=== PATIENT | female | born 1975 | race Caucasian/White ===

== ENCOUNTER → 2017-01-16 | Outpatient (CLI) | payer BC ==
--- NOTE | 2017-01-18 08:35 | MM ---
Reason for exam: screening (asymptomatic). Last mammogram was performed 1 year and 1 month ago. History: Family history of breast cancer in cousin at age 36. Reductions of both breasts, April 2015. Benign left mammotome panel of the left breast, November 18, 2009. Took hormonal contraceptives for 3 years beginning at age 25. Physical Findings: A clinical breast exam by your physician is recommended on an annual basis and results should be correlated with mammographic findings. MG Screening Mammo w CAD Bilateral CC and MLO view(s) were taken. Prior study comparison: December 10, 2015, bilateral MG screening mammo w CAD. August 11, 2014, bilateral MG screening mammo w CAD. July 28, 2013, CAD bilateral diagnostic mammogram. Previous mammotome biopsy in the left breast. There is chronic nodularity in the left breast. Bilateral mammoplasty changes. Faint group of microcalcifications lateral anterior right breast appear new. Not clearly seen on the MLO view. ASSESSMENT: Incomplete: need additional imaging evaluation, BI-RAD 0 RECOMMENDATION: Special view mammogram of the right breast. If lesion persists on supplemental views, image directed ultrasound is recommended. [facility] will attempt to contact patient to return for supplemental views and ultrasound if indicated.
== END | disposition home or self-care (01) ==
LOC: RADMAMWWP 15:10
PROVIDERS: ATTEND Obstetrics & Gynecology
DX: Z12.31 Encounter for screening mammogram for malignant neoplasm of breast (principal)

== ENCOUNTER → 2017-01-23 | Outpatient (CLI) | payer BC ==
--- NOTE | 2017-01-23 08:09 | MM ---
Reason for exam: additional evaluation requested from abnormal screening. Last mammogram was performed less than 1 month ago. History: Family history of breast cancer in cousin at age 36. Reductions of both breasts, April 2015. Benign left mammotome panel of the left breast, November 18, 2009. Took hormonal contraceptives for 3 years beginning at age 25. Physical Findings: Nurse did not find any significant physical abnormalities on exam. MG Work Up Mamm w CAD RT ML, CC with magnification, and ML with magnification view(s) were taken of the right breast. Prior study comparison: January 16, 2017, bilateral MG screening mammo w CAD. December 10, 2015, bilateral MG screening mammo w CAD. Punctate calcifications within upper outer right breast are likely related to previous reduction mammoplasty. These results were verbally communicated with the patient and result sheet given to the patient on 01/23/17. ASSESSMENT: Probably benign, BI-RAD 3 RECOMMENDATION: Follow-up diagnostic mammogram of the right breast in 6 months. (with magnification views)
== END | disposition home or self-care (01) ==
LOC: RADMAMWWP 07:02
PROVIDERS: ATTEND Obstetrics & Gynecology
DX: R92.8 Other abnormal and inconclusive findings on diagnostic imaging of breast (principal)

== ENCOUNTER → 2017-02-27 | Outpatient (CLI) | payer BC ==
--- NOTE | 2017-02-27 15:31 | XR ---
EXAMINATION TYPE: XR knee complete RT DATE OF EXAM: 02/27/2017 COMPARISON: NONE HISTORY: Right knee pain TECHNIQUE: Three-view right knee FINDINGS: Joint spaces are preserved. No acute fractures are evident. No joint effusion is evident. F ollow-up exams can be performed 7-10 days from acute trauma for continued pain. IMPRESSION: 1. No acute osseous abnormality three-view right knee
== END ==
LOC: RADXRYALE 11:58
PROVIDERS: ATTEND Internal Medicine
DX: M25.561 Pain in right knee (principal)

== ENCOUNTER → 2017-10-25 | Outpatient (CLI) | payer BC ==
--- NOTE | 2017-10-25 15:05 | MM ---
Reason for exam: follow-up at short interval from prior study. Last mammogram was performed 9 months ago. History: Family history of breast cancer in cousin at age 36. Reductions of both breasts, April 2015. Benign left mammotome panel of the left breast, November 18, 2009. Took hormonal contraceptives for 3 years beginning at age 25. Physical Findings: Nurse did not find any significant physical abnormalities on exam. MG Diagnostic Mammo RT w CAD CC and MLO view(s) were taken of the right breast. Prior study comparison: January 23, 2017, right breast MG work up mamm w CAD RT. January 16, 2017, bilateral MG screening mammo w CAD. There are scattered fibroglandular densities. Finding: There are typically benign round calcifications in the right breast. There is no discrete abnormality. These results were verbally communicated with the patient and result sheet given to the patient on 10/25/17. ASSESSMENT: Benign, BI-RAD 2 RECOMMENDATION: Return to routine screening mammogram schedule for both breasts. Back on schedule for January 2018.
== END ==
LOC: RADMAMWWP 14:27
PROVIDERS: ATTEND Obstetrics & Gynecology
DX: R92.8 Other abnormal and inconclusive findings on diagnostic imaging of breast (principal)
CPT/HCPCS: 77065

== ENCOUNTER → 2018-11-19 | Outpatient (CLI) | payer BC ==
--- NOTE | 2018-11-20 13:08 | MM ---
Reason for exam: screening (asymptomatic). Last mammogram was performed 1 year and 1 month ago. History: Family history of breast cancer in cousin at age 36. Reductions of both breasts, April 2015. Benign left mammotome panel of the left breast, November 18, 2009. Took hormonal contraceptives for 3 years beginning at age 25. Physical Findings: A clinical breast exam by your physician is recommended on an annual basis and results should be correlated with mammographic findings. MG Screening Mammo w CAD Bilateral CC and MLO view(s) were taken. Prior study comparison: October 25, 2017, right breast MG diagnostic mammo RT w CAD. January 23, 2017, right breast MG work up mamm w CAD RT. The breast tissue is heterogeneously dense. This may lower the sensitivity of mammography. No suspicious abnormality. Left biopsy marker noted. No significant new finding when compared with prior studies. ASSESSMENT: Negative, BI-RAD 1 RECOMMENDATION: Routine screening mammogram of both breasts in 1 year.
== END | disposition home or self-care (01) ==
LOC: RADMAMWWP 07:59
PROVIDERS: ATTEND Obstetrics & Gynecology
DX: Z12.31 Encounter for screening mammogram for malignant neoplasm of breast (principal)
CPT/HCPCS: 77067

== ENCOUNTER → 2018-12-19 | Outpatient (CLI) | payer BC ==
--- NOTE | 2018-12-19 15:43 | US ---
EXAMINATION TYPE: US thyroid st tissue head/neck DATE OF EXAM: 12/19/2018 COMPARISON: NONE CLINICAL HISTORY: E04.1 THYROID NODULE. Difficulty swallowing x 1 month GLAND SIZE: Right Lobe: 4.9 x 1.3 x 1.5 cm Overall Parenchyma: homogenous Left Lobe: 5.2 x 1.1 x 1.2 cm Overall Parenchyma: homogeneous Isthmus Thickness: 0.3 cm NODULES RIGHT: # of nodules measured on right: 0 LEFT: # of nodules measured on left: 0 ISTHMUS: # of nodules measured in the isthmus: 0 Bilateral neck scanned, no evidence of lymphadenopathy. IMPRESSION: Mildly enlarged thyroid gland without discrete nodule.
== END | disposition home or self-care (01) ==
LOC: RADUSWWP 15:18
PROVIDERS: ATTEND Internal Medicine
DX: E04.1 Nontoxic single thyroid nodule (principal); E04.9 Nontoxic goiter, unspecified
CPT/HCPCS: 76536

== ENCOUNTER → 2019-03-27 | Outpatient (CLI) | payer BC ==
[2019-03-27 15:37] LABS: Basophils % (A) 1 %; Eosinophils % (A) 1 %; HCT 37.9 % (34.0-46.0); HGB 11.8 gm/dL (11.4-16.0); Hypochromasia Slight; Lymphocytes # (A) 1.5 k/uL (1.0-4.8); Lymphocytes % (A) 28 %; MCH 27.5 pg (25.0-35.0); MCHC 31.2 g/dL (31.0-37.0); MCV 88.1 fL (80.0-100.0); Mean Platelet Volume 6.4; Monocytes # (A) 0.3 k/uL (0-1.0); Monocytes % (A) 6 %; Neutrophils # (A) 3.4 k/uL (1.3-7.7); Neutrophils % (A) 63 %; Platelet Count 337 k/uL (150-450); RBC 4.31 m/uL (3.80-5.40); RDW 13.3 % (11.5-15.5); WBC 5.5 k/uL (3.8-10.6)
[2019-03-27 19:44] LABS: African American GFR (CKD) 121.3 (60.0-200.0); Anion Gap 9.5 mmol/L (4.00-12.00); Calcium 9.5 mg/dL (8.7-10.3); Carbon Dioxide 25.5 mmol/L (21.6-31.8); Potassium 4.5 mmol/L (3.5-5.5)
[2019-03-28 01:09] LABS: Hemoglobin A1C 5.4 % (4.0-6.0)
== END | disposition home or self-care (01) ==
LOC: LABWHC1 14:43
PROVIDERS: ATTEND Orthopaedic Surgery Adult Reconstructive Orthopaedic Surgery
DX: M25.562 Pain in left knee (principal); G89.29 Other chronic pain
CPT/HCPCS: 36415; 80048; 83036; 85025; 87070

== ENCOUNTER → 2020-02-02 | Outpatient (CLI) | payer BC ==
--- NOTE | 2020-02-03 10:07 | MM ---
Reason for exam: screening (asymptomatic). Last mammogram was performed 1 year and 2 months ago. History: Family history of breast cancer in cousin at age 36. Reductions of both breasts, April 2015. Benign left mammotome panel of the left breast, November 18, 2009. Took hormonal contraceptives for 3 years beginning at age 25. Physical Findings: A clinical breast exam by your physician is recommended on an annual basis and results should be correlated with mammographic findings. MG Screening Mammo w CAD Bilateral CC and MLO view(s) were taken. Prior study comparison: November 19, 2018, bilateral MG screening mammo w CAD. October 25, 2017, right breast MG diagnostic mammo RT w CAD. The breast tissue is heterogeneously dense. This may lower the sensitivity of mammography. There is no discrete abnormality. No significant changes when compared with prior studies. ASSESSMENT: Negative, BI-RAD 1 RECOMMENDATION: Routine screening mammogram of both breasts in 1 year.
== END | disposition home or self-care (01) ==
LOC: RADMAMWWP 07:54
PROVIDERS: ATTEND Obstetrics & Gynecology
DX: Z12.31 Encounter for screening mammogram for malignant neoplasm of breast (principal)
CPT/HCPCS: 77067

== ENCOUNTER → 2021-02-15 | Outpatient (CLI) | payer BC ==
--- NOTE | 2021-02-16 09:16 | MM ---
Reason for exam: screening (asymptomatic). Last mammogram was performed 1 year ago. History: Family history of breast cancer in cousin at age 36. Reductions of both breasts, April 2015. Benign left mammotome panel of the left breast, November 18, 2009. Took hormonal contraceptives for 3 years beginning at age 25. Physical Findings: A clinical breast exam by your physician is recommended on an annual basis and results should be correlated with mammographic findings. MG Screening Mammo w CAD Bilateral CC and MLO view(s) were taken. XCCL view(s) were taken of the left breast. Prior study comparison: February 02, 2020, bilateral MG screening mammo w CAD. November 19, 2018, bilateral MG screening mammo w CAD. There are scattered fibroglandular densities. There is no discrete abnormality. No significant changes when compared with prior studies. ASSESSMENT: Negative, BI-RAD 1 RECOMMENDATION: Routine screening mammogram of both breasts in 1 year.
== END | disposition home or self-care (01) ==
LOC: RADMAMWWP 08:07
PROVIDERS: ATTEND Obstetrics & Gynecology
DX: Z12.31 Encounter for screening mammogram for malignant neoplasm of breast (principal); Z80.3 Family history of malignant neoplasm of breast
CPT/HCPCS: 77067

== ENCOUNTER 2021-02-22 05:59 | Day surgery (SDC) | payer BC ==
[2021-02-17 10:30] VITALS: BMI 38.9
--- NOTE | 2021-02-21 17:30 | P.HPOB ---
History of Present Illness H&P Date: 02/21/21 Chief Complaint: Dysfunctional uterine bleeding, requesting ablation. This patient is a pleasant 45 yr female who presents for endometrial ablation secondary to dysfunctional uterine bleeding/menorrhagia. Evaluation has included a pelvic ultrasound (negative except small fibroid) and endometrial biopsy (negative). Review of Systems Genitourinary: Reports abnormal vaginal bleeding, Reports menorrhagia Menstruation: Reports as per HPI, Reports menses variable, Reports period heavy Past Medical History Past Medical History: Deep Vein Thrombosis (DVT), GERD/Reflux History of Any Multi-Drug Resistant Organisms: None Reported Past Surgical History: Bariatric Surgery, Breast Surgery, Cholecystectomy, Joint Replacement, Tubal Ligation Additional Past Surgical History / Comment(s): left TKR x2 Past Anesthesia/Blood Transfusion Reactions: No Reported Reaction Past Psychological History: No Psychological Hx Reported Smoking Status: Never smoker Past Alcohol Use History: Rare Past Drug Use History: None Reported - Past Family History Mother Family Medical History: No Reported History Medications and Allergies Home Medications Medication Instructions Recorded Confirmed Type Omeprazole 20 mg PO QAM 02/17/21 02/17/21 History Allergies Allergy/AdvReac Type Severity Reaction Status Date / Time sulfamethoxazole AdvReac Nausea & Verified 02/17/21 10:22 [From Bactrim] Vomiting trimethoprim [From Bactrim] AdvReac Nausea & Verified 02/17/21 10:22 Vomiting Exam - OBG Physical Exam Abdomen: bowel sounds normal, no diffuse tenderness, no bruit present, no guarding noted, no hepatomegaly, no splenomegaly, no mass Vulva: both: normal Vagina: normal moisture, no discharge Cervix: no lesion, no discharge Uterus: normal size, normal contour Results Ultrasound and endometrial biopsy negative. Assessment and Plan Assessment: This is a pleasant 45 yr female with longstanding dysfunctional uterine bleeding requesting endometrial ablation for treatment. Plan is hysteroscopy, D&C, and Novasure endometrial ablation. I have discussed this surgery and risks with the patient including: infection, bleeding, possible uterine perforation and/or thermal injury. All of her questions were answered and a written consent obtained. (1) Dysfunctional uterine bleeding Status: Chronic Code(s): N93.8 - OTHER SPECIFIED ABNORMAL UTERINE AND VAGINAL BLEEDING SNOMED Code(s): 81554482892674
[~2021-02-22 05:59] MED LIST: DEXAMETHASONE SOD PHOSPHATE 4 MG/ML 1 ML VIAL IV ONE; LACTATED RINGERS 1,000 ML IV SCH; LIDOCAINE 1% (10MG/ML) FOR IV START INTRADERMA PRN; MIDAZOLAM 2 MG/2 ML VIAL IV PRN; ONDANSETRON 4 MG/2 ML VIAL IVP ONE; Pre Op ABX Message 1 EACH MISC MISCELLANE ONE
[2021-02-22] MEDS ORDERED: SUCCINYLCHOLINE CHLORIDE 100 MG/5 ML SYR IV ONE (06:45)
[2021-02-22] MEDS ORDERED: MIDAZOLAM 2 MG/2 ML VIAL ONE (06:45)
[2021-02-22] MEDS ORDERED: KETOROLAC 15 MG/ML 1 ML VIAL ONE (06:45)
[2021-02-22] MEDS ORDERED: PROPOFOL 10 MG/ML 20 ML VIAL IV ONE (06:45)
[2021-02-22] MEDS ORDERED: LIDOCAINE 1% INJ 10MG/ML (20 ML MDV) ONE (06:45)
[2021-02-22] MEDS ORDERED: fentaNYL (PF) 50 MCG/ML 2 ML AMP ONE (06:45)
[2021-02-22] MEDS ORDERED: HYDROmorphone 0.5 MG/0.5 ML SYRINGE IVP PRN (07:00)
--- NOTE | 2021-02-22 07:23 | P.OP ---
Date of Procedure: 02/22/21 Preoperative Diagnosis: Dysfunctional uterine bleeding Postoperative Diagnosis: Same Procedure(s) Performed: #1: Hysteroscopy. #2: Dilation and curettage. #3: NovaSure endometrial ablation Anesthesia: GEORGE Surgeon: Tab Martinez Estimated Blood Loss (ml): 10 Urine output (ml): 20 Pathology: other (Uterine curettings) Condition: stable Disposition: PACU Indications for Procedure: Please see dictated H&P for intimate details of this patient's admission. Brief summary of pleasant 45-year-old 5 para 4 female long-standing dysfunctional uterine bleeding negative evaluation requesting NovaSure endometrial ablation. Patient understands this surgery and risks and risks of infection, bleeding, possible uterine perforation and/or thermal injury. All the patient's questions are answered and a written consent obtained. Operative Findings: This patient normal appearing endometrial cavity. Description of Procedure: This patient is taken to the operating room where she is laid in supine po sition. She subsequently undergoes general endotracheal anesthesia without incident. With an adequate level of anesthesia she's placed in dorsal lithotomy position. Examination under anesthesia shows a mid position uterus of normal size. Weighted speculum was placed in the posterior vagina. The bladder is drained for 20 mL of clear urine. Anterior lip of the cervix is gravid and Allis clamp. Then gently sound the uterus to 8.5 cm. This done gentle dilation is done of the endocervix to allow the hysteroscope easily and the uterine cavity. Hysteroscopy is performed with saline and the uterine cavity is measured a length of 6.0 cm. There is no evidence of polyps and/or fibroids or other growths. This done the hysteroscope was removed. The cervix is dilated more to allow a small curette easily uterine cavity a gentle but thorough 4 quadrant curettage is done at this time. This tissue is sent off to pathology. NovaSure device is then opened and seated in place. It is seated in place at a length of 6.0 cm and opens up to a width of 4.1 cm. After passing the cavity integrity test, is enabled at 135 W setting for 59 seconds. NovaSure device is then removed. Hysteroscopy again is performed and appears to be ablated up to the endocervix. This point the procedure is ended. The Allis clamp and weighted speculum were removed. All counts are correct 3. Patient is awakened from anesthesia and taken recovery room in satisfactory condition. There are no complications.
[2021-02-22 07:31] VITALS: TEMP 97.6
[2021-02-22 07:55] VITALS: RESP 16
[2021-02-22 08:46] VITALS: BP 132/82; PULSE 82
== END 2021-02-22 09:07 | disposition home or self-care (01) ==
LOC: OR 05:59
PROVIDERS: ATTEND Obstetrics & Gynecology
DX: N93.8 Other specified abnormal uterine and vaginal bleeding (principal); K21.9 Gastro-esophageal reflux disease without esophagitis; Z86.718 Personal history of other venous thrombosis and embolism; Z79.01 Long term (current) use of anticoagulants; Z98.84 Bariatric surgery status; Z88.2 Allergy status to sulfonamides; Z79.899 Other long term (current) drug therapy
CPT/HCPCS: 81025; 88305; 58563; J2250; J1100; J2405; J2001; J3010; J1885; J0330; J2704; J1170

== ENCOUNTER → 2021-11-08 | Outpatient (CLI) | payer BC ==
[2021-11-08 18:40] LABS: HCT 37.3 % (37.2-46.3); HGB 10.8 g/dL (12.0-15.0); MCH 24.7 pg (27.0-32.0); MCV 85.2 fL (80.0-97.0); Mean Platelet Volume 10.9 fL (9.5-12.2); NRBC Per 100 WBC 0 /100 WBCS (0.0-0.0); Platelet Count 411 X 10*3/uL (140-440); RBC 4.38 X 10*6/uL (4.10-5.20); WBC 5.14 X 10*3/uL (4.50-10.00)
[2021-11-08 18:52] LABS: % Iron Saturation 7.14 (12.00-45.00); ALT 12 U/L (8-44); AST 18 U/L (13-35); African American GFR (CKD) 116.5 (60.0-200.0); Albumin 4.3 g/dL (3.8-4.9); Albumin/Globulin Ratio 1.45 (1.60-3.17); Alkaline Phosphatase 67 U/L (41-126); BUN/Creat Ratio 14.91 Ratio (12.00-20.00); Blood Urea Nitrogen 10.6 mg/dL (9.0-27.0); Carbon Dioxide 25.1 mmol/L (20.0-27.5); Chloride 104 mmol/L (96-109); Globulin 2.9 g/dL (1.6-3.3); Glucose 104 mg/dL (70-110); Iron 33 ug/dL (50-170); Non-African American GFR(CKD) 100.5 (60.0-200.0); Sodium 140 mmol/L (135-145); Total Iron Binding Capacity 465 ug/dL (228-460); Total Protein 7.2 g/dL (6.2-8.2); Vitamin B12 >2000.0 pg/mL (200.0-944.0)
== END | disposition home or self-care (01) ==
LOC: LABWHC1 11:26
PROVIDERS: ATTEND Internal Medicine Endocrinology, Diabetes & Metabolism
DX: Z98.84 Bariatric surgery status (principal); R53.83 Other fatigue
CPT/HCPCS: 36415; 80053; 82306; 82533; 82607; 83540; 83550; 84146; 84439; 84443; 84481; 85027; 86376

== ENCOUNTER → 2021-11-17 | Outpatient (CLI) | payer BC ==
--- NOTE | 2021-11-18 16:53 | US ---
EXAMINATION TYPE: US thyroid st tissue head/neck DATE OF EXAM: 11/17/2021 COMPARISON: US CLINICAL HISTORY: R22.1 Lump in neck. Lump in neck x 8 months. Patient has difficulty swallowing. GLAND SIZE: Right Lobe: 4.8 x 1.7 x 1.3 cm Overall Parenchyma: homogenous Left Lobe: 5.2 x 1.5 x 1.0 cm Overall Parenchyma: homogeneous Isthmus Thickness: 0.28 cm NODULES RIGHT: # of nodules measured on right: 0 LEFT: # of nodules measured on left: 0 ISTHMUS: # of nodules measured in the isthmus: 0 Bilateral neck scanned, Hypoechoic area with hyperechoic center seen within the left neck at patient' s area of concern: 1.1 x 1.0 x 0.6 cm. IMPRESSION: 1. Palpable area appears to correlate with a lymph node discussed above. 2. Thyroid appears unremarkable. 2017 ACR TI-RADS LEVEL: *Highest TI-RADS level nodule reported
== END | disposition home or self-care (01) ==
LOC: RADUSWWP 15:33
PROVIDERS: ATTEND Internal Medicine Endocrinology, Diabetes & Metabolism
DX: R22.1 Localized swelling, mass and lump, neck (principal)
CPT/HCPCS: 76536

== ENCOUNTER → 2022-02-16 | Outpatient (CLI) | payer BC ==
--- NOTE | 2022-02-24 18:01 | MM ---
Reason for Exam: Screening (asymptomatic). Last screening mammogram was performed 12 month(s) ago. Patient History: Menarche at age 10. First Full-Term at age 19. Hormonal Contraceptives for 3 years from age 25 until age 28. 04/2015, Bilateral Reduction. 11/18/2009, Benign Core Biopsy on the left side. Maternal cousin had breast cancer, age 36. Last menstrual period: Risk Values: Ruba 5 year model risk: 1.1%. NCI Lifetime model risk: 9.8%. Prior Study Comparison: 11/19/2018 Bilateral Screening Mammogram, [facility]. 02/02/2020 Bilateral Screening Mammogram, [facility]. 02/15/2021 Bilateral Screening Mammogram, [facility]. Tissue Density: There are scattered fibroglandular densities. Findings: Analyzed By CAD. A biopsy marker is within the left breast. Pattern is stable. No suspicious groups of microcalcifications, spiculated or lobular masses, architectural distortion or other secondary signs of malignancy are mammographically apparent. Overall Assessment: Benign, BI-RAD 2 Management: Screening Mammogram of both breasts in 1 year. A negative mammogram report should not preclude additional follow up of suspicious palpable abnormalities. Patient should continue monthly self breast exam. A clinical breast exam by your physician is recommended on an annual basis and results should be correlated with mammographic findings. Electronically signed and approved by: Tobias Feliz D.O. Radiologis
== END | disposition home or self-care (01) ==
LOC: RADMAMWWP 08:44
PROVIDERS: ATTEND Obstetrics & Gynecology
DX: Z12.31 Encounter for screening mammogram for malignant neoplasm of breast (principal); Z80.3 Family history of malignant neoplasm of breast; Z98.890 Other specified postprocedural states
CPT/HCPCS: 77067

== ENCOUNTER → 2023-03-14 | Outpatient (CLI) | payer BC ==
--- NOTE | 2023-03-15 09:29 | MM ---
Reason for Exam: Screening (asymptomatic). Last mammogram was performed 1 year(s) and 1 month(s) ago. Patient History: Menarche at age 10. First Full-Term at age 19. Hormonal Contraceptives for 3 years from age 25 until age 28. 04/2015, Bilateral Reduction. 11/18/2009, Benign Core Biopsy on the left side. Maternal cousin had breast cancer, age 36. Risk Values: Ruba 5 year model risk: 1.0%. NCI Lifetime model risk: 9.6%. Prior Study Comparison: 02/02/2020 Bilateral Screening Mammogram, [facility]. 02/15/2021 Bilateral Screening Mammogram, [facility]. 02/16/2022 Bilateral MG screening mammo w CAD, [facility]. Tissue Density: There are scattered fibroglandular densities. Findings: Analyzed By CAD. There is no suspicious group of microcalcifications or new suspicious mass in either breast. Overall Assessment: Benign, BI-RAD 2 Management: Screening Mammogram of both breasts in 1 year. . Patient should continue monthly self-breast exams. A clinical breast exam by your physician is recommended on an annual basis. This exam should not preclude additional follow-up of suspicious palpable abnormalities. Note on Ruba scores and lifetime risk: 1. A Ruba score greater than 3% is considered moderate risk. If this is the case, consider specialist referral to assess eligibility for a risk reducing agent. 2. If overall lifetime risk for the development of breast cancer is 20% or higher, the patient may qualify for future screening with alternating mammogram and breast MRI. Electronically signed and approved by: Shane Don M.D. Radiologis
== END | disposition home or self-care (01) ==
LOC: RADMAMWWP 08:24
PROVIDERS: ATTEND Obstetrics & Gynecology
DX: Z12.31 Encounter for screening mammogram for malignant neoplasm of breast (principal); Z80.3 Family history of malignant neoplasm of breast
CPT/HCPCS: 77067

== ENCOUNTER → 2024-09-26 | Outpatient (CLI) | payer OTHER ==
--- NOTE | 2024-09-26 09:05 | MM ---
Reason for Exam: Screening (asymptomatic). Last mammogram was performed 1 year(s) and 6 month(s) ago. Patient History: Menarche at age 10. First Full-Term at age 19. Patient has history of breast feeding. Hormonal Contraceptives for 3 years from age 25 until age 28. 04/2015, Bilateral Reduction. 11/18/2009, Benign Core Biopsy on the left side. Maternal cousin had breast cancer, age 36. Risk Values: Ruba 5 year model risk: 1.1%. NCI Lifetime model risk: 9.3%. Prior Study Comparison: 02/15/2021 Bilateral Screening Mammogram, [facility]. 02/16/2022 Bilateral MG screening mammo w CAD, [facility]. 03/14/2023 Bilateral MG screening mammo w CAD, [facility]. Tissue Density: There are scattered areas of fibroglandular density. Findings: Analyzed By CAD. There is no suspicious group of microcalcifications or new suspicious mass in either breast. Previous biopsy marker. Stable chronic nodularity adjacent to the biopsy clip. Overall Assessment: Benign, BI-RAD 2 Management: Screening Mammogram of both breasts in 1 year. . Patient should continue monthly self-breast exams. A clinical breast exam by your physician is recommended on an annual basis. This exam should not preclude additional follow-up of suspicious palpable abnormalities. Note on Ruba scores and lifetime risk: 1. A Ruba score greater than 3% is considered moderate risk. If this is the case, consider specialist referral to assess eligibility for a risk reducing agent. 2. If overall lifetime risk for the development of breast cancer is 20% or higher, the patient may qualify for future screening with alternating mammogram and breast MRI. [facility], , 09/26/2024 9:02 AM. Electronically signed and approved by: Rom Manzano M.D. Radiologis
== END | disposition home or self-care (01) ==
LOC: RADMAMWWP 08:35
PROVIDERS: ATTEND Obstetrics & Gynecology Obstetrics
DX: Z12.31 Encounter for screening mammogram for malignant neoplasm of breast (principal); R92.323 Mammographic fibroglandular density, bilateral breasts; Z80.3 Family history of malignant neoplasm of breast; Z92.0 Personal history of contraception
CPT/HCPCS: 77067